=== PATIENT | female | born 1940 | race African-American/Black ===

== ENCOUNTER 2016-06-16 10:00 | Outpatient (RCR) ==
[2015-10-23 16:19] VITALS: BMI 19.3
== END 2016-06-17 ==
LOC: NEWBEG 10:00
PROVIDERS: ATTEND Psychiatry & Neurology Psychiatry
DX: F32.2 Major depressive disorder, single episode, severe without psychotic features (principal); F01.50 Vascular dementia, unspecified severity, without behavioral disturbance, psychotic disturbance, mood disturbance, and anxiety
CPT/HCPCS: 90792; 90853

== ENCOUNTER 2016-07-14 10:00 | Outpatient (RCR) ==
[2015-10-23 16:19] VITALS: BMI 19.3
== END 2016-07-15 ==
LOC: NEWBEG 10:00
PROVIDERS: ATTEND Psychiatry & Neurology Psychiatry
DX: F32.2 Major depressive disorder, single episode, severe without psychotic features (principal); F01.50 Vascular dementia, unspecified severity, without behavioral disturbance, psychotic disturbance, mood disturbance, and anxiety
CPT/HCPCS: 90853; 99213; 99214

== ENCOUNTER 2016-08-08 10:00 | Outpatient (RCR) ==
[2015-10-23 16:19] VITALS: BMI 19.3
== END 2016-08-15 ==
LOC: NEWBEG 10:00
PROVIDERS: ATTEND Psychiatry & Neurology Psychiatry
DX: F32.2 Major depressive disorder, single episode, severe without psychotic features (principal); F01.50 Vascular dementia, unspecified severity, without behavioral disturbance, psychotic disturbance, mood disturbance, and anxiety
CPT/HCPCS: 90853; 99213

== ENCOUNTER 2016-09-29 11:15 | Outpatient (CLI) ==
[2015-10-23 16:19] VITALS: BMI 19.3
== END 2016-09-29 11:16 ==
LOC: AMBL 11:15
PROVIDERS: ATTEND Emergency Medicine
DX: R41.82 Altered mental status, unspecified (principal); E16.2 Hypoglycemia, unspecified; R63.0 Anorexia

== ENCOUNTER 2017-06-16 10:20 | Outpatient (CLI) ==
[2015-10-23 16:19] VITALS: BMI 19.3
== END 2017-06-16 10:21 | disposition left against medical advice (07) ==
LOC: AMBL 10:20
PROVIDERS: ATTEND Emergency Medicine
DX: M25.562 Pain in left knee (principal); M25.561 Pain in right knee; M17.0 Bilateral primary osteoarthritis of knee; W06.XXXA Fall from bed, initial encounter

== ENCOUNTER 2017-12-18 23:54 | Outpatient (CLI) ==
[2015-10-23 16:19] VITALS: BMI 19.3
== END 2017-12-19 00:12 | disposition short-term general hospital (02) ==
LOC: AMBL 23:54
PROVIDERS: ATTEND Emergency Medicine
DX: S00.12XA Contusion of left eyelid and periocular area, initial encounter (principal); M62.49 Contracture of muscle, multiple sites; W06.XXXA Fall from bed, initial encounter

== ENCOUNTER 2018-03-16 14:45 | Outpatient (CLI) ==
[2015-10-23 16:19] VITALS: BMI 19.3
--- NOTE | 2018-03-16 16:59 | DEXA ---
EXAM: Bone densitometry. History: Osteoporosis. Findings: Evaluation of the lumbar spine reveals a total bone mineral density of 1.021 grams per centimeter squ ared with T-score of negative 1.3. Impression: Osteopenia of the lumbar spine
--- NOTE | 2018-03-17 10:00 | MAMMO ---
EXAM: Bilateral digital screening mammogram (2-D and 3-D) History: Screening Comparison: None available. Findings: MLO and CC views of bilateral breasts demonstrate scattered fibroglandular breast parenchy ma. CAD was reviewed by the radiologist. Tomosynthesis was performed. Benign bilateral breast calc ifications. Metallic radiopaque device is seen within the left breast tissue. There are no dominant masses, no suspicious microcalcifications and no architectural distortions Impression: Benign mammogram. Recommend followup routine screening mammography in 1 year. BIRADS 2
== END 2018-03-16 14:46 | disposition home or self-care (01) ==
LOC: RAD 14:45
PROVIDERS: ATTEND Family Medicine
DX: Z12.31 Encounter for screening mammogram for malignant neoplasm of breast (principal); M81.0 Age-related osteoporosis without current pathological fracture

== ENCOUNTER 2023-11-01 23:05 | Observation (INO) ==
[2023-11-02 00:15] LABS: BASOPHILS % (AUTO) 0.2 % (0.0-3.0); EOSINOPHILS # (AUTO) 0.3 K/ul (0.0-0.7); EOSINOPHILS % (AUTO) 2.2 % (0.0-7.0); HEMATOCRIT 40.1 % (37.0-47.0); HEMOGLOBIN 12.7 g/dl (12.0-16.0); IMMATURE GRANULOCYTE % (AUTO) 0.3 % (0.0-5.0); LYMPHOCYTES # (AUTO) 0.8 K/uL (0.60-3.4); LYMPHOCYTES % (AUTO) 6.9 (10.0-50.0); MEAN CORPUSCULAR HEMOGLOBIN 31.4 pg (27.0-31.0); MEAN CORPUSCULAR HGB CONC 31.7 (31.8-35.4); MEAN CORPUSCULAR VOLUME 99.3 fl (81.0-99.0); MONOCYTES % (AUTO) 8.9 (0-10); NEUTROPHILS # (AUTO) 9.4 K/ul (2.0-6.9); NEUTROPHILS % (AUTO) 81.5 % (42.2-75.2); PLATELET COUNT 251 10^3/uL (140-440); RDW COEFFICIENT OF VARIATION 15.4 % (11.6-14.8); RED BLOOD COUNT 4.04 10^6/ul (4.20-5.40); WHITE BLOOD COUNT 11.53 K/ul (4.6-10.2)
[2023-11-02 00:26] LABS: ALANINE AMINOTRANSFERASE 18.6 U/L (0-35); ALBUMIN 3.88 g/dL (3.5-5.0); ALKALINE PHOSPHATASE 102.7 U/L (53-141); ASPARTATE AMINO TRANSFERASE 43.8 U/L (14-36); BILIRUBIN,TOTAL 0.57 mg/dL (0.2-1.3); BLOOD UREA NITROGEN 31.7 mg/dL (7-17); CALCIUM 8.81 mg/dL (8.4-10.2); CARBON DIOXIDE 22.3 mmol/L (22-30.0); CHLORIDE 108.8 mmol/L (98-107); CREATININE 1.26 mg/dL (0.60-1.30); GLUCOSE 107.3 mg/dL (74-106); POTASSIUM 4.23 mmol/L (3.5-5.1); SODIUM 137.8 mmol/L (134.5-145); TOTAL PROTEIN 7.62 g/dL (6.3-8.2)
--- NOTE | 2023-11-02 00:34 | ED.PDOC ---
General ED Provider: Dr. NICHOLAS LÓPEZ MD Chief Complaint: Fall Stated Complaint: Patient rolled or fell out of bed, she did hit her forehead and complains of bilateral knee pain. She did hit her head but denied any neck pain or RAI. No back pain but mostly bilateral knee pain. She does not ambulate but uses a wheelchair Time Seen by Provider: 11/01/23 23:21 Mode of Arrival: Ambulance Information Source: Patient and Care Home Exam Limitations: Dementia Primary Care Provider: TONY HERMAN Referred to ED by: Other (Family and [facility] staff) Nursing and Triage Documentation Reviewed and Agree: Yes Does Patient Take Opioids?: No What is Opioid Naive?: *Opioid Naive implies the patient is not already taking opioids or not chronically receiving opioids on a daily basis. *PRN dosing is not "usually" associated with tolerance. *Patients are at higher risk of over-sedation and aspiration. What is Opioid Tolerant?: *Opioid Tolerance implies less than the expected response to an opioid. *Acquired tolerance is defined by the patient taking 60mg of oral morphine daily (or equianalgesic dose of another opioid) for 1 week or more. *Often associated with chronic pain. *May take more than usual dose to achieve desired pain control. Review of Systems Review Of Systems Constitutional: Reports No symptoms Eyes: Reports No symptoms Ears, Nose, Mouth, Throat: Reports No symptoms Respiratory: Denies Cough or Shortness of Breath Cardiac: Denies Chest pain GI: Denies Abdominal pain or Constipated Musculoskeletal: Reports Joint pain; Denies Neck pain Skin: Reports Bruising Neurological: Reports Cognitive dysfunction [facility] Medical History (Updated 11/01/23 @ 23:18 by VEE PATEL RN) Personal history of transient ischemic attack (TIA), and cerebral infarction without residual deficits Z86.73 - Personal history of transient ischemic attack (TIA), and cerebral infarction without residual deficits (ICD-10) Unspecified convulsions R56.9 - Unspecified convulsions (ICD-10) Other amnesia R41.3 - Other amnesia (ICD-10) Chronic kidney disease, stage 3 unspecified N18.30 - Chronic kidney disease, stage 3 unspecified (ICD-10) Dorsalgia, unspecified M54.9 - Dorsalgia, unspecified (ICD-10) Other chronic pain G89.29 - Other chronic pain (ICD-10) Hyperlipidemia, unspecified E78.5 - Hyperlipidemia, unspecified (ICD-10) Major depressive disorder, single episode, unspecified F32.9 - Major depressive disorder, single episode, unspecified (ICD-10) Transient cerebral ischemic attack, unspecified G45.9 - Transient cerebral ischemic attack, unspecified (ICD-10) Unspecified hearing loss, unspecified ear H91.90 - Unspecified hearing loss, unspecified ear (ICD-10) Rheumatoid arthritis M06.9 - RHEUMATOID ARTHRITIS, UNSPECIFIED (ICD-10) Essential (primary) hypertension I10 - Essential (primary) hypertension (ICD-10) Unspecified sequelae of unspecified cerebrovascular disease I69.90 - Unspecified sequelae of unspecified cerebrovascular disease (ICD- 10) Social History Smoking and tobacco status: Never smoker Physical Exam Physical Exam Appearance: Reports Well-appearing Ill-appearing: None Pain Distress: Mild Eyes: Reports MARIE and EOMI ENT: Reports Nose normal and Oropharynx normal Neck: Supple Respiratory: Reports Airway patent, Breath sounds clear and Breath sounds diminished; Denies Wheezes or Retractions Cardiovascular: Reports Pulses normal GI/: Reports Nontender, No masses and Bowel sounds normal Musculoskeletal: Reports ROM intact, No calf tenderness and Limited ROM Skin: Reports Warm and Normal color Neurological: Reports Motor intact Psychiatric: Reports Affect appropriate and Mood appropriate Interpretation Radiology Interpretation Radiology Interpretation By: Radiologist Radiology Results: Negative Exam Interpreted: CT Scan (of head and cervical spine. ) and Other (pelvis and both knees are negative) Course Course 11/01/23 00:10 11/01/23 00:10 Orders, Labs, Meds: Lab Review 11/01/23 00:10 WBC 11.53 H RBC 4.04 L Hgb 12.7 Hct 40.1 MCV 99.3 H MCH 31.4 H MCHC 31.7 L RDW Coeff of Kaya 15.4 H Plt Count 251 Immature Gran % (Auto) 0.3 Neut % (Auto) 81.5 H Lymph % (Auto) 6.9 L Surry % (Auto) 8.9 Eos % (Auto) 2.2 Baso % (Auto) 0.2 Neut # (Auto) 9.4 H Lymph # (Auto) 0.8 Surry # (Auto) 1.0 Eos # (Auto) 0.3 Baso # (Auto) 0.0 Immature Gran # (Auto) 0.0 Sodium 137.8 Potassium 4.23 Chloride 108.8 H Carbon Dioxide 22.3 Anion Gap 10.93 BUN 31.7 H Creatinine 1.26 Estimated GFR (MDRD) 41.00 BUN/Creatinine Ratio 25.15 Glucose 107.3 H Calcium 8.81 Total Bilirubin 0.57 AST 43.8 H ALT 18.6 Alkaline Phosphatase 102.7 Total Protein 7.62 Albumin 3.88 Globulin 3.74 Albumin/Globulin Ratio 1.03 Orders Category Date Time Status CBC W/ AUTO DIFF Stat LAB 11/01/23 00:10 Completed CMP [COMPREHENSIVE METABOLIC PANEL] Stat LAB 11/01/23 00:[address] CERVICAL SPINE W/O CONTRAST Stat RADS 11/01/23 23:[address] HEAD W/O CONTRAST Stat RADS 11/02/23 00:37 Completed KNEE LEFT 3 VIWS Stat RADS 11/01/23 23:27 Completed KNEE RIGHT 3 VIEWS Stat RADS 11/01/23 23:27 Completed PELVIS 1 OR 2 VIEWS Stat RADS 11/01/23 23:27 Completed Vital Signs: Temp Pulse Resp BP Pulse Ox 11/01/23 23:05 98.4 F 76 16 147/75 H 98 Discharge Plan Discharge Patient Disposition: PLACED OBSERVATION Did you review [place] D[employer]ATE[employer] for ALL controlled substances?: Not Applicable ED Provider: NICHOLAS LÓPEZ Condition: Stable Physician Progress Note: Resting comfortably. Discussed with patient and sister about admitting her OBS and repeating a CT scan of head in the AM, as I seen delayed ICH from a fall, while on anti-coagulant
--- NOTE | 2023-11-02 00:57 | CT ---
EXAM: CT OF THE CERVICAL SPINE WITHOUT CONTRAST History: Neck trauma. Technique: Multiplanar CT images through the cervical spine were obtained without the administration of IV contrast FINDINGS: The visualized airway remains patent. Visualized upper lungs are clear. No acute fracture or subluxation of the cervical spine. No prevertebral soft tissue swelling. Prede ntal space is not widened. No suspicious lytic or blastic osseous lesions. Moderate to severe multi level disc space narrowing with endplate sclerosis and osteophyte formation. Moderate to severe mult ilevel bilateral neural foraminal narrowing secondary to uncovertebral and facet hypertrophy. Impression: No acute osseous abnormality of the cervical spine All CT scans are performed using dose optimization techniques as appropriate to the performed exam an d include at least one of the following: Automated exposure control, adjustment of the mA and/or kV according t o size, and the use of iterative reconstruction technique.
--- NOTE | 2023-11-02 00:57 | DI ---
EXAM: THREE VIEWS OF THE RIGHT KNEE. History: Right knee trauma. FINDINGS: No acute fracture or dislocation. Atherosclerotic vascular calcifications. Intact right knee arthroplasty hardware. Impression: No acute osseous abnormality
--- NOTE | 2023-11-02 00:58 | DI ---
EXAM: THREE VIEWS OF THE LEFT KNEE. History: Left knee trauma. FINDINGS: No acute fracture or dislocation. Atherosclerotic vascular calcifications. Severe tricom partmental joint space narrowing with marginal sclerosis and osteophyte formation. Impression: No acute osseous abnormality
--- NOTE | 2023-11-02 00:58 | DI ---
EXAM: PELVIS ONE-VIEW HISTORY trauma Findings / impression: No significant bony or articular abnormality. There is a 4.0 x 2.8 cm calcif ied mass in the right ezekiel pelvis probably a calcified fibroid.
--- NOTE | 2023-11-02 01:03 | CT ---
EXAM: CT OF THE HEAD WITHOUT CONTRAST History: Head trauma. Technique: Multiplanar CT images through the head were obtained without the administration of IV con trast FINDINGS: The visualized paranasal sinuses and mastoid air cells are clear in general. No acute celestine varial abnormalities. Moderate left frontal scalp hematoma. Intracranially the ventricular and cisternal spaces demonstrate mild to moderate atrophy. No dominan t mass or midline shift. No hydrocephalous. No acute intracranial hemorrhage or abnormal extraaxial fluid collections. Scattered periventricular and subcortical white matter hypodensities. Impression: 1. No acute intracranial process. 2. Atrophy and chronic small vessel ischemic disease. 3. Left frontal scalp hematoma All CT scans are performed using dose optimization techniques as appropriate to the performed exam an d include at least one of the following: Automated exposure control, adjustment of the mA and/or kV according t o size, and the use of iterative reconstruction technique.
[2023-11-02] MEDS ORDERED: TYLENOL PO PRN (01:51)
[2023-11-02 02:28] LABS: SARS COV-2 RNA RAPID NAAT NEGATIVE (NEGATIVE)
[2023-11-02 04:13] VITALS: RESP 18; BMI 26.6
--- NOTE | 2023-11-02 06:45 | CT ---
EXAM: CT SCAN BRAIN WITHOUT CONTRAST HISTORY: Fall COMPARISON: CT scan brain 11/02/2023 FINDINGS: Helically acquired axial images obtained from skull base to the convexities without contra st utilizing 5 mm collimation. Sagittal and coronal reconstructions were imaged and reviewed.. The ventricles and CSF spaces are prominent compatible with age appropriate atrophy. There is moderate p eriventricular hypodensity noted compatible with chronic microvascular disease. There are no acute i ntracranial findings. Calvarium is intact. The visualized paranasal sinuses and mastoid air cells a re clear. There is left frontal scalp hematoma. IMPRESSION: No acute intracranial findings. Left frontal scalp hematoma All CT scans are performed using dose optimization techniques as appropriate to the performed exam an d include at least one of the following: Automated exposure control, adjustment of the mA and/or kV according t o size, and the use of iterative reconstruction technique.
[2023-11-02] MEDS: COZAAR PO SCH (08:17)
[2023-11-02] MEDS: VITAMIN D PO SCH (08:17)
[2023-11-02] MEDS: FOLIC ACID PO SCH (08:18)
[2023-11-02] MEDS: MULTIVITAMIN TABLET PO SCH (08:18)
[2023-11-02] MEDS: NAMENDA PO SCH (08:18)
[2023-11-02] MEDS: KEPPRA PO SCH (08:18)
[2023-11-02] MEDS: ULORIC PO SCH (08:18)
[2023-11-02] MEDS: CYMBALTA PO SCH (08:19)
--- NOTE | 2023-11-02 08:44 | PCM.SS ---
Provider Provider: ZORAIDA CUTLER, [facility] Date Admission Date: 11/02/23 Discharge Date Discharge Date: 11/02/23 Primary Care Physician Primary Care Physician: TONY HERMAN Chief Complaint Reason For Visit: FALL/HEAD INJURY History of Present Illness History of Present Illness: Admitted 11/02/23 02:38, this 83 year old ICELANDIC/F presented to the ER after a fall out of bed at local SNF. Hit head and bilateral knees. No acute findings found on scans. Has large hematoma to L scalp. Admitted to observation for repeat CT scan this am due to patient taking plavix. CT scan completed and unchanged from previous. Denies any pain at this time or other complaints. [facility] Medical History Personal history of transient ischemic attack (TIA), and cerebral infarction without residual deficits Z86.73 - Personal history of transient ischemic attack (TIA), and cerebral infarction without residual deficits (ICD-10) Unspecified convulsions R56.9 - Unspecified convulsions (ICD-10) Other amnesia R41.3 - Other amnesia (ICD-10) Chronic kidney disease, stage 3 unspecified N18.30 - Chronic kidney disease, stage 3 unspecified (ICD-10) Dorsalgia, unspecified M54.9 - Dorsalgia, unspecified (ICD-10) Other chronic pain G89.29 - Other chronic pain (ICD-10) Hyperlipidemia, unspecified E78.5 - Hyperlipidemia, unspecified (ICD-10) Major depressive disorder, single episode, unspecified F32.9 - Major depressive disorder, single episode, unspecified (ICD-10) Transient cerebral ischemic attack, unspecified G45.9 - Transient cerebral ischemic attack, unspecified (ICD-10) Unspecified hearing loss, unspecified ear H91.90 - Unspecified hearing loss, unspecified ear (ICD-10) Rheumatoid arthritis M06.9 - RHEUMATOID ARTHRITIS, UNSPECIFIED (ICD-10) Essential (primary) hypertension I10 - Essential (primary) hypertension (ICD-10) Unspecified sequelae of unspecified cerebrovascular disease I69.90 - Unspecified sequelae of unspecified cerebrovascular disease (ICD- 10) Social History Smoking and tobacco status: Never smoker Medications Mecications: Medications at Discharge (Home Meds & RX) folic acid 1 mg tablet 1 mg PO DAILY 10/23/15 methotrexate sodium 2.5 mg tablet 7.5 mg PO WEEKLY 10/23/15 acetaminophen 325 mg tablet 650 mg PO Q4H PRN fever or pain 11/01/23 cholecalciferol (vitamin D3) 125 mcg (5,000 unit) tablet 125 mcg PO DAILY 11/01/23 clopidogrel 75 mg tablet (Plavix) 75 mg PO DAILY 11/01/23 cyanocobalamin (vitamin B-12) 500 mcg lozenges (Vitamin B-12) 500 mcg PO DAILY 11/01/23 duloxetine 20 mg capsule,delayed release 20 mg PO DAILY 11/01/23 febuxostat 40 mg tablet 40 mg PO DAILY 11/01/23 levetiracetam 750 mg tablet 750 mg PO BID 11/01/23 losartan 50 mg tablet 50 mg PO DAILY 11/01/23 melatonin 5 mg tablet 5 mg PO BEDTIME 11/01/23 memantine 10 mg tablet 10 mg PO BID 11/01/23 multivitamin with minerals (Multiple Vitamin-Minerals tablet) 1 tab PO DAILY 11/01/23 omega 3-hpy-gbf-fish oil 1,200 mg (144 mg-216 mg) capsule (Fish Oil) 1 cap PO DAILY 11/01/23 pravastatin 20 mg tablet 20 mg PO BEDTIME 11/01/23 Allergies Allergies Allergy/AdvReac Type Severity Reaction Status Date / Time Latex, Natural Rubber AdvReac Verified 11/01/23 23:17 Review of Systems Constitutional: Reports No symptoms Head: Reports Normocephalic Eyes: Reports No symptoms Ears: Reports No symptoms Nose: Reports No symptoms Mouth: Reports No symptoms Throat: Reports No symptoms Cardiovascular: Reports No symptoms Respiratory: Reports No symptoms Gastrointestinal: Reports No symptoms Genitourinary: Reports No Symptoms Musculoskeletal: Reports Other (fall) Endocrine: Reports No symptoms Hematology: Reports No symptoms Immunology: Reports No symptoms Neurological: Reports No symptoms Psychiatric: Reports No symptoms Physical Examination Appearance: Positive No Apparent Distress and Alert and Oriented x3 Head: Positive Normocephalic and Other (hematoma to L forehead) Eyes: Positive MARIE Neck: Positive Supple, Non-Tender and Trachea Midline Heart: Positive RRR and No Murmurs Respiratory: Positive Airway patent, Breath Sounds Clear, Bilaterally, Breath Sounds Equal and Respirations Nonlabored GI/: Positive Soft, Nontender, Bowel sounds normal and No Distention Extremities: Positive Other (contracted x4) Neurological: Positive Alert and Oriented Vital Signs (Last 4 Hours) Vital Signs Last 4 Hours: Vital Signs: Last 4 Hours 11/02/23 05:00 11/02/23 05:10 11/02/23 05:35 Temperature 96.8 F L Temperature Source Temporal Artery Scan Pulse Rate 65 Respiratory Rate 18 Blood Pressure 146/83 H Blood Pressure Mean 104 Blood Pressure Location Right Arm Blood Pressure Position Supine O2 Sat by Pulse Oximetry 96 Oxygen Delivery Method Room Air Room Air Room Air Telemetry Type Telemetry Monitoring Telemetry Heart Rate EKG MD Interval EKG QRS Interval Telemetry Strip Reading 11/02/23 06:52 11/02/23 07:00 11/02/23 07:47 Temperature Temperature Source Pulse Rate Respiratory Rate Blood Pressure Blood Pressure Mean Blood Pressure Location Blood Pressure Position O2 Sat by Pulse Oximetry Oxygen Delivery Method Room Air Room Air Telemetry Type Remote Telemetry Telemetry Monitoring Continues Telemetry Heart Rate 70 EKG MD Interval 0.19 EKG QRS Interval 0.07 Telemetry Strip Reading NSR 11/02/23 07:48 Temperature Temperature Source Pulse Rate Respiratory Rate Blood Pressure Blood Pressure Mean Blood Pressure Location Blood Pressure Position O2 Sat by Pulse Oximetry Oxygen Delivery Method Room Air Telemetry Type Telemetry Monitoring Telemetry Heart Rate EKG MD Interval EKG QRS Interval Telemetry Strip Reading Labs This Visit Labs This Visit: Labs This Visit 11/01/23 11/02/23 00:10 01:55 WBC 11.53 H RBC 4.04 L Hgb 12.7 Hct 40.1 MCV 99.3 H MCH 31.4 H MCHC 31.7 L RDW Coeff of Kaya 15.4 H Plt Count 251 Immature Gran % (Auto) 0.3 Neut % (Auto) 81.5 H Lymph % (Auto) 6.9 L Hinds % (Auto) 8.9 Eos % (Auto) 2.2 Baso % (Auto) 0.2 Neut # (Auto) 9.4 H Lymph # (Auto) 0.8 [place] # (Auto) 1.0 Eos # (Auto) 0.3 Baso # (Auto) 0.0 Immature Gran # (Auto) 0.0 Sodium 137.8 Potassium 4.23 Chloride 108.8 H Carbon Dioxide 22.3 Anion Gap 10.93 BUN 31.7 H Creatinine 1.26 Estimated GFR (MDRD) 41.00 BUN/Creatinine Ratio 25.15 Glucose 107.3 H Calcium 8.81 Total Bilirubin 0.57 AST 43.8 H ALT 18.6 Alkaline Phosphatase 102.7 Total Protein 7.62 Albumin 3.88 Globulin 3.74 Albumin/Globulin Ratio 1.03 SARS CoV-2 RNA Rapid PETER Negative Imaging Imaging: EXAM: CT OF THE CERVICAL SPINE WITHOUT CONTRAST FINDINGS: The visualized airway remains patent. Visualized upper lungs are clear. No acute fracture or subluxation of the cervical spine. No prevertebral soft tissue swelling. Predental space is not widened. No suspicious lytic or blastic osseous lesions. Moderate to severe multilevel disc space narrowing with endplate sclerosis and osteophyte formation. Moderate to severe multilevel bilateral neural foraminal narrowing secondary to uncovertebral and facet hypertrophy. Impression: No acute osseous abnormality of the cervical spine EXAM: CT OF THE HEAD WITHOUT CONTRAST FINDINGS: The visualized paranasal sinuses and mastoid air cells are clear in general. No acute calvarial abnormalities. Moderate left frontal scalp hematoma. Intracranially the ventricular and cisternal spaces demonstrate mild to moderate atrophy. No dominant mass or midline shift. No hydrocephalous. No acute intracranial hemorrhage or abnormal extraaxial fluid collections. Scattered periventricular and subcortical white matter hypodensities. Impression: 1. No acute intracranial process. 2. Atrophy and chronic small vessel ischemic disease. 3. Left frontal scalp hematoma EXAM: CT SCAN BRAIN WITHOUT CONTRAST FINDINGS: Helically acquired axial images obtained from skull base to the convexities without contrast utilizing 5 mm collimation. Sagittal and coronal reconstructions were imaged and reviewed.. The ventricles and CSF spaces are prominent compatible with age appropriate atrophy. There is moderate periventricular hypodensity noted compatible with chronic microvascular disease. There are no acute intracranial findings. Calvarium is intact. The visualized paranasal sinuses and mastoid air cells are clear. There is left frontal scalp hematoma. IMPRESSION: No acute intracranial findings. Left frontal scalp hematoma EXAM: THREE VIEWS OF THE RIGHT KNEE. FINDINGS: No acute fracture or dislocation. Atherosclerotic vascular calcifications. Intact right knee arthroplasty hardware. Impression: No acute osseous abnormality EXAM: THREE VIEWS OF THE LEFT KNEE. FINDINGS: No acute fracture or dislocation. Atherosclerotic vascular calcifications. Severe tricompartmental joint space narrowing with marginal sclerosis and osteophyte formation. Impression: No acute osseous abnormality Review Review Statement: I have independently reviewed and interpreted the labs/EKGs/imaging that were ordered by the ER provider. I have reviewed all outside records that are availab le currently in our EMR including imaging/notes/labs from previous visits. Plan Reccomendations/Plan: 1. Head Injury - observed overnight without complication, repeat head CT completed and negative No medication changes during stay. Additional Planning: Case discussed with ED Physician, Dr. Conley. DVT Prophylaxis: Plavix Disposition: Admit to: Med/surg Observation Discussed Plan of Care with Dr. Iron Chaparro. If patient discharged with Left Ventricular Systolic Dysfunction: NA Discharged with a beta hanna? [] If no, why not? [] Discharged with an donny/arb? [] If no, why not? [] DIAGNOSIS: HEAD INJURY, FALL DIET: REGULAR ACTIVITY: TOLERATED FOLLOW UP WITH PCP THIS WEEK Review With Patient Reviewed with Patient and Family: Patient and family have been counseled on condition and care plan and have no immediate questions. I have personally discussed and reviewed the patient's visit/current labs/imaging/decision making with Dr. Mayco Chaparro, my supervising attending. Total number of minutes spent with patient 85 min. More than 50% of the time spent with this patient was devoted to counseling and coordination of care. Time of Admission:11/02/23 02:38 Time of Discharge: 11/02/23 09:00 Discharge Plan Discharge Discharge Orders: Discharge Patient (ONCE); Ordered 11/02/23 Ordered By: LIZZ FRANCOIS Activity Restrictions/Additional Instructions: Diet: Regular Activity: as tolerated Follow-up with PCP this week No changes to medications. Instructions: Fall Prevention for Older Adults (GEN) Patient Disposition: TRANSFER SNF Prescriptions: Continued methotrexate sodium 2.5 MG tablet 7.5 mg PO WEEKLY Rx Instructions: Give 3 tabs PO daily on Saturdays folic acid 1 MG tablet 1 mg PO DAILY acetaminophen 325 mg tablet 650 mg PO Q4H PRN (Reason: fever or pain) duloxetine 20 mg capsule,delayed release(DR/EC) 20 mg PO DAILY febuxostat 40 mg tablet 40 mg PO DAILY omega 8-psa-nqh-fish oil [Fish Oil] 1,200 (144-216) mg capsule 1 cap PO DAILY levetiracetam 750 mg tablet 750 mg PO BID losartan 50 mg tablet 50 mg PO DAILY melatonin 5 mg tablet 5 mg PO BEDTIME memantine 10 mg tablet 10 mg PO BID Multiple Vitamin-Minerals Tablet 1 tab PO DAILY clopidogrel [Plavix] 75 mg tablet 75 mg PO DAILY pravastatin 20 mg tablet 20 mg PO BEDTIME cyanocobalamin (vitamin B-12) [Vitamin B-12] 500 mcg lozenge 500 mcg PO DAILY cholecalciferol (vitamin D3) 125 mcg (5,000 unit) tablet 125 mcg PO DAILY Did you review [place] [employer]EL[employer] for ALL controlled substances?: No Discussed opioids are addictive and Narcan is available by prescription or from pharmacy.: No Condition: Stable
[2023-11-02 09:58] VITALS: BP 139/60; PULSE 70; TEMP 97.7
[2023-11-02] MEDS ORDERED: MELATONIN PO SCH (21:00)
[2023-11-02] MEDS ORDERED: PRAVACHOL PO SCH (21:00)
== END 2023-11-02 11:25 ==
LOC: ED 23:05 → MEDSURG B 23:05
PROVIDERS: ADMIT Hospitalist; ATTEND Nurse Practitioner Family
DX: Z79.01 Long term (current) use of anticoagulants; S00.93XA Contusion of unspecified part of head, initial encounter; M25.561 Pain in right knee; Z96.651 Presence of right artificial knee joint; Y92.122 Bedroom in nursing home as the place of occurrence of the external cause; W06.XXXA Fall from bed, initial encounter; Z51.81 Encounter for therapeutic drug level monitoring; M54.2 Cervicalgia; M25.562 Pain in left knee; Z20.822 Contact with and (suspected) exposure to COVID-19